=== PATIENT | female | born 1995 | race Caucasian/White ===

== ENCOUNTER 2017-01-27 15:38 | Emergency (ER) | payer MEDICAID ==
[~2017-01-27] VITALS: Ht 149.9 cm; Wt 49.0 kg
[2017-01-27 16:52] LABS: CLARITY URINE CLOUDY (CLEAR); COLOR URINE YELLOW (YELLOW); KETONES URINE 4+ (NEGATIVE); LEUKOCYTE ESTERASE URINE 1+ (NEGATIVE); NITRITE URINE NEGATIVE (NEGATIVE); OCCULT BLOOD URINE NEGATIVE (NEGATIVE); PH URINE 5.5 (4.5-8.0); PROTEIN URINE NEGATIVE (NEGATIVE); SPECIFIC GRAVITY URINE 1.019 (1.005-1.030)
[2017-01-27] MEDS ORDERED: ACETAMINOPHEN 325MG TABLET PO ONE (22:30)
[2017-01-27] MEDS ORDERED: ONDANSETRON HCL 4MG/2ML VIAL IV ONE (22:30)
[2017-01-27] MEDS ORDERED: KETOROLAC 15MG/ML VIAL IV ONE (22:30)
[2017-01-27] MEDS ORDERED: SODIUM CHLORIDE 0.9% 1,000 ML IV ONE (22:30)
[2017-01-27 22:46] LABS: BASOPHILS % 0.2 % (0.0-2.0); HEMATOCRIT. 35.9 % (36.0-48.0); HEMOGLOBIN. 12.2 g/dL (12.0-16.0); LYMPHOCYTES % 21.6 % (20.0-50.0); MEAN CORPUSCULAR VOLUME 91.3 fL (81.0-99.0); MEAN PLATELET VOLUME 7.5 fl (7.4-10.4); MONOCYTES % 12.9 % (2.0-8.0); NEUTROPHILS % 65.3 % (40.0-76.0); PLATELET 198 x1000/uL (130-400); RED BLOOD CELL COUNT 3.94 mill/uL (4.2-5.4); RED CELL DISTRIBUTION WIDTH 12.8 % (11.6-14.6)
[2017-01-27 22:53] LABS: INR 1.1; PROTHROMBIN TIME 11.4 sec (9.4-11.6)
[2017-01-27 22:58] LABS: HCG SCREEN NEGATIVE
[2017-01-27] MEDS ORDERED: PIPERACILLIN/TAZOBACTAM 3.375GM/50ML PREMIX IV ONE (23:00)
[2017-01-27 23:01] LABS: CARBON DIOXIDE 24 mEq/L (21-32); CHLORIDE 102 mEq/L (98-107)
[2017-01-27] MEDS ORDERED: PIPERACILLIN/TAZ 3.375G PREMIX 50 ML IV NR (23:15)
[2017-01-28] MEDS ORDERED: IOHEXOL-300 100 ML BOTTLE ONE (00:11)
[2017-01-28] MEDS ORDERED: CEFTRIAXONE 1 G PREMIX 50 ML IV ONE (01:00)
[2017-01-28 01:47] VITALS: BP 100/64
== END 2017-01-28 01:48 | disposition home or self-care (01) ==
LOC: ER 17:33
DX: J11.1 Influenza due to unidentified influenza virus with other respiratory manifestations (principal); N30.90 Cystitis, unspecified without hematuria; R79.1 Abnormal coagulation profile
CPT/HCPCS: 36415; 71010; 74177; 80053; 81001; 83605; 83690; 84703; 85025; 85610; 87040; 87070; 87086; 87430; 87804; 96361; 96365; 96375; 99285; J1885; J2405; J2543; J7030; Q9967; Z7610